=== PATIENT | female | born 1990 | race African-American/Black ===

== ENCOUNTER 2017-09-18 20:17 | Emergency (ER) | payer MEDICAID ==
[~2017-09-18] VITALS: Ht 162.6 cm; Wt 89.5 kg
[2017-09-18 20:19] VITALS: BP 118/84; PULSE 110; RESP 16; TEMP 98.4; O2SAT 100
[2017-09-18 21:36] VITALS: BP 102/73; PULSE 99; RESP 20; O2SAT 100
--- NOTE | 2017-09-18 21:42 | PD ---
HPI Chief Complaint: Abdominal Pain Time Seen by Provider: 21:38 Travel History International Travel<30 days: No Contact w/Intl Traveler<30days: No Traveled to known affect area: No History of Present Illness HPI This is a 26-year-old female who presents today with points right sided abdominal pain 24-36 hours. Patient reports it's progressively worse. She reports it sharp and stabbing. She reports it as a 8 out of 10 on the pain scale. Patient denies any fevers, chills. She denies any association with eating or drinking. She reports she's been urinating a lot but denies any dysuria urgency or frequency. There no other complaints time my examination. PFSH Past Medical History Hx Anticoagulant Therapy: Yes Asthma: Yes (CHILDHOOD) Cardiovascular Problems: Yes (heart murmur) Diminished Hearing: No Immunizations Current: Yes ?: Unknown LMP: 08/04/17 : 1 Para: 1 Past Surgical History Cardiac Surgery: Yes (PT HAD PDA SURGERY WHEN SHE WAS A BABY) Section: Yes Ear Surgery: Yes Tonsillectomy: Yes Tympanostomy Tube: Yes Social History Alcohol Use: Yes (socially) Tobacco Use: Yes Substance Use: Yes ([facility]) Allergies-Medications (Allergen,Severity, Reaction): Coded Allergies: *MDRO Multi-Drug Resistant Organism (Verified Allergy, Unknown, 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) MRSA Reported Meds & Prescriptions Reported Meds & Active Scripts Active Macrobid (Nitrofurantoin Monoh/Nitrofur Macro) 100 Mg Cap 100 Mg PO BID 10 Days Review of Systems Except as stated in HPI: all other systems reviewed are Neg General / Constitutional: No: Fever, Chills Cardiovascular: No: Chest Pain or Discomfort, Palpitations Respiratory: No: Cough, Shortness of Breath Gastrointestinal: Positive: Nausea, Abdominal Pain (8 sided upper and lower), No: Vomiting, Hematemesis, Hematochezia Genitourinary: Positive: Other (increased urination), No: Frequency, Dysuria, Pelvic Pain, Discharge, Vaginal Bleeding Musculoskeletal: Positive: Pain, No: Weakness, Edema Neurologic: No: Weakness, Headache Psychiatric: No: Substance Abuse Physical Exam Narrative GENERAL: Well-nourished, well-developed patient, in no acute respiratory distress. SKIN: Focused skin assessment warm/dry. HEAD: Normocephalic/atraumatic. EYES: No scleral icterus. No injection or drainage. NECK: Supple, trachea midline. CARDIOVASCULAR: Regular rate and rhythm without murmurs, gallops, or rubs. RESPIRATORY: Breath sounds equal bilaterally. No accessory muscle use. GASTROINTESTINAL: Abdomen soft, nondistended. She has subjective tenderness to palpation in her right middle and lower abdomen. No Stokes sign. No rebound or guarding. MUSCULOSKELETAL: No cyanosis, or edema. NEUROLOGICAL: Awake and alert. Cranial nerves II through XII intact. Motor grossly within normal limits. Five out of 5 muscle strength in all muscle groups. Normal speech. Data Data Last Documented VS Vital Signs Date Time Temp Pulse Resp B/P (MAP) Pulse Ox O2 Delivery O2 Flow Rate FiO2 09/18/17 21:36 99 20 102/73 (83) 100 Room Air 09/18/17 20:19 98.4 Orders Orders Ed Urine Pregnancytest Poc (09/18/17 21:21) Urinalysis - C+S If Indicated (09/18/17 21:21) Complete Blood Count With Diff (09/18/17 21:38) Comprehensive Metabolic Panel (09/18/17 21:38) Lipase (09/18/17 21:38) Iv Access Insert/Monitor (09/18/17 21:38) Ecg Monitoring (09/18/17 21:38) Oximetry (09/18/17 21:38) Morphine Inj (Morphine Inj) (09/18/17 21:45) Ondansetron Inj (Zofran Inj) (09/18/17 21:45) Sodium Chlor 0.9% 1000 Ml Inj (Ns 1000 M (09/18/17 21:38) Sodium Chloride 0.9% Flush (Ns Flush) (09/18/17 21:45) Urine Culture (09/18/17 21:25) Ceftriaxone Inj (Rocephin Inj) (09/18/17 22:30) Potassium Chloride (Kcl) (09/18/17 23:15) Labs Laboratory Tests Test 09/18/17 21:25 09/18/17 22:00 Urine Color YELLOW Urine Turbidity HAZY Urine pH 6.0 Urine Specific [place] 1.016 Urine Protein TRACE mg/dL Urine Glucose (UA) NEG mg/dL Urine Ketones NEG mg/dL Urine Occult Blood NEG Urine Nitrite POS Urine Bilirubin NEG Urine Urobilinogen LESS THAN 2.0 MG/DL Urine Leukocyte Esterase LARGE Urine RBC 8 /hpf Urine WBC 26 /hpf Urine WBC Clumps RARE Urine Squamous Epithelial Cells 9 /hpf Urine Bacteria MOD /hpf Urine Mucus FEW /lpf Microscopic Urinalysis Comment CULTURE INDICATED White Blood Count 8.3 TH/MM3 Red Blood Count 4.40 MIL/MM3 Hemoglobin 7.4 GM/DL Hematocrit 24.5 % Mean Corpuscular Volume 55.6 FL Mean Corpuscular Hemoglobin 16.8 PG Mean Corpuscular Hemoglobin Concent 30.3 % Red Cell Distribution Width 21.4 % Platelet Count 169 TH/MM3 Mean Platelet Volume 9.4 FL Neutrophils (%) (Auto) 73.2 % Lymphocytes (%) (Auto) 19.9 % Monocytes (%) (Auto) 5.7 % Eosinophils (%) (Auto) 1.0 % Basophils (%) (Auto) 0.2 % Neutrophils # (Auto) 6.1 TH/MM3 Lymphocytes # (Auto) 1.6 TH/MM3 Monocytes # (Auto) 0.5 TH/MM3 Eosinophils # (Auto) 0.1 TH/MM3 Basophils # (Auto) 0.0 TH/MM3 CBC Comment AUTO DIFF Differential Comment AUTO DIFF CONFIRMED Platelet Estimate NORMAL Platelet Morphology Comment ENLARGED Ovalocytes 1+ Acanthocytes OCC Blood Urea Nitrogen 7 MG/DL Creatinine 0.75 MG/DL Random Glucose 94 MG/DL Total Protein 7.6 GM/DL Albumin 3.7 GM/DL Calcium Level 8.8 MG/DL Alkaline Phosphatase 50 U/L Aspartate Amino Transf (AST/SGOT) 7 U/L Alanine Aminotransferase (ALT/SGPT) 13 U/L Total Bilirubin 0.3 MG/DL Sodium Level 141 MEQ/L Potassium Level 3.2 MEQ/L Chloride Level 107 MEQ/L Carbon Dioxide Level 29.5 MEQ/L Anion Gap 5 MEQ/L Estimat Glomerular Filtration Rate 113 ML/MIN Lipase 55 U/L MDM Medical Decision Making Medical Screen Exam Complete: Yes Emergency Medical Condition: Yes Differential Diagnosis Appendicitis versus cholecystitis versus urinary tract infection versus kidney stone Narrative Course 26-year-old female presents with right sided abdominal pain with radiation to her right lower back. Patient denies any fevers, chills. The patient denies any nausea vomiting diarrhea. She denies any relation to history of food ingestion. The patient has a normal white blood cell count. She is noted to be anemic with a hemoglobin of 7.2. Looking back in her previous records, she has had a hemoglobin of exactly 7.2. Urinalysis reveals a UTI. She's been given a gram of Rocephin. Her potassium was also 3.2. She was given potassium replacement. She'll be discharged with a prescription for Macrobid, 1 by mouth twice a day 10 days. Be instructed to increase her potassium rich fluids. She 'll be told to pharmacy picking tech a multivitamin with iron and take that. She'll also be instructed to follow up with primary care physician. She is instructed return if she also worsening pain, fevers chills, nausea vomiting diarrhea, or any other reason. Diagnosis Primary Impression: UTI (urinary tract infection) Additional Impressions: Hypokalemia Chronic anemia Additional Instructions: Increase her potassium rich foods, i.e.: Green leafy vegetables, citrus, bananas. Purchase [id number] multivitamin with iron and take daily. Return if feeling worse or any other reason. Scripts Nitrofurantoin Monohydrate Macrocrystals (Macrobid) 100 Mg Cap 100 MG PO BID for Infection for 10 Days, #20 CAP 0 Refills Prov: Simone Hernandez MD 09/18/17 Disposition: 01 DISCHARGE HOME Condition: Stable Simone Hernandez MD Sep 18, 2017 21:42
[2017-09-18] MEDS ORDERED: SODIUM CHLORIDE 0.9% FLUSH 10 ML FLUSH IV FLUSH PRN (21:45)
[2017-09-18] MEDS ORDERED: MORPHINE SULFATE 4 MG/ML INJ IV PUSH ONE (21:45)
[2017-09-18] MEDS ORDERED: ONDANSETRON HCL 4 MG/2 ML VIAL IVP ONE (21:45)
[2017-09-18 22:01] LABS: BACTERIA, URINE MOD /hpf; BLOOD, URINE NEG (NEG); COMMENT (UR) CULTURE INDICATED; CULTURE IF INDICATED CULTURE INDICATED; GLUCOSE,URINE NEG (NEG); KETONE, URINE NEG (NEG); MUCUS URINE FEW /lpf (OCC); NITRITE,URINE POS (NEG); SQUAMOUS EPITHELIAL CELL URINE 9 /hpf (0-5); URINE COLOR YELLOW (YELLW/STRAW)
[2017-09-18] MEDS: SODIUM CHLOR 0.9% 1000 ML INJ 1,000 ML IV SCH ×2 (22:08→23:08)
[2017-09-18 22:23] LABS: AUTOMATED NEUTROPHIL # 6.1 TH/MM3 (1.8-7.7); BASOPHIL % 0.2 % (0.0-2.0); EOSINOPHIL # 0.1 TH/MM3 (0-0.4); HEMATOCRIT 24.5 % (35.0-46.0); LYMPH % 19.9 % (9.0-44.0); LYMPHOCYTE # 1.6 TH/MM3 (1.0-4.8); MEAN CELL VOLUME 55.6 FL (80.0-100.0); MEAN CORPUSCULAR HEMOGLOBIN 16.8 PG (27.0-34.0); MEAN CORPUSCULAR HGB CONC 30.3 % (32.0-36.0); MONO % 5.7 % (0.0-8.0); NEUT % 73.2 % (16.0-70.0); PLATELET COUNT 169 TH/MM3 (150-450); RED CELL DISTRIBUTION WIDTH 21.4 % (11.6-17.2); WHITE BLOOD COUNT 8.3 TH/MM3 (4.0-11.0)
[2017-09-18 22:24] LABS: HEMO FLAGS AUTO DIFF
[2017-09-18] MEDS ORDERED: cefTRIAXone INJ 1,000 MG in SODIUM CHLORIDE 0.9% INJ 100 ML IV ONE (22:30)
[2017-09-18 22:37] LABS: ALT (GPT) 13 U/L (10-53); ANION GAP 5 MEQ/L (5-15); AST (GOT) 7 U/L (15-37); BICARBONATE 29.5 MEQ/L (21.0-32.0); BLOOD UREA NITROGEN 7 MG/DL (7-18); CHLORIDE 107 MEQ/L (98-107); GLOMERULAR FILTRATION RATE 113 ML/MIN (>89); POTASSIUM 3.2 MEQ/L (3.5-5.1); SODIUM (NA) 141 MEQ/L (136-145)
[2017-09-18 22:40] LABS: ALKALINE PHOSPHATASE 50 U/L (45-117); TOTAL BILIRUBIN ADULT 0.3 MG/DL (0.2-1.0)
[2017-09-18 22:54] LABS: OVALOCYTES 1+ (NORMAL); PLATELET ESTIMATE SMEAR NORMAL (NORMAL); PLATELET MORPHOLOGY ENLARGED (NORMAL); SCAN/DIFF AUTO DIFF CONFIRMED
[2017-09-18 22:55] LABS: ACANTHOCYTES OCC (NORMAL)
[2017-09-18] MEDS ORDERED: POTASSIUM CHLORIDE 10 MEQ CONTROLLED RELEASE TAB PO ONE (23:15)
[2017-09-18] MEDS ORDERED: MACR100C2 PO (23:25)
== END 2017-09-18 23:51 | disposition home or self-care (01) ==
LOC: NEPE 20:17
DX: N39.0 Urinary tract infection, site not specified (principal); E87.6 Hypokalemia; D64.9 Anemia, unspecified; B96.20 Unspecified Escherichia coli [E. coli] as the cause of diseases classified elsewhere; R01.1 Cardiac murmur, unspecified; F12.90 Cannabis use, unspecified, uncomplicated; Z79.01 Long term (current) use of anticoagulants; Z72.0 Tobacco use
CPT/HCPCS: 80053; 81001; 83690; 84703; 85025; 87077; 87086; 87186; 96361; 96365; 96375; 99284; J0696; J2270; J2405; J7030